=== PATIENT | male | born 1950 | race Caucasian/White ===

== ENCOUNTER 2016-09-01 20:53 | Inpatient (IN) | payer MEDICARE, OTHER ==
--- NOTE | ~2016-09-01 | CN ---
Consultation Report [address] [place]. [address] NAME: REA LIZARRAGA : 48 STATUS : ADM IN PAT#: [id number] AGE: 66 ADM/REG DATE : 09/02/16 MR#: [id number] REPORT SERV DATE: 09/03/16 DICTATED BY: THOMAS PATEL DATE: 09/02/16 REPORT STATUS : Draft TRANSCRIBED BY: MODL DATE: 09/02/16 CONSULTATION NOTE THIS IS A 66-YEAR-OLD WHITE MALE, WHO IS ADMITTED AFTER WAKING WITH PERIUMBILICAL ABDOMINAL PAIN. HE HAD BEEN HAVING SOME LOOSE STOOLS. ALSO DEVELOPED NAUSEA AND VOMITING. DURING THE DAY, HE HAD SYNCOPE X4. NO BLEEDING. NO FEVER. STOOL STUDIES HAD BEEN NEGATIVE SINCE ADMISSION. NO REFLUX. HISTORY OF ATRIAL FIBRILLATION, STATUS POST ABLATION, HE IS ON ELIQUIS; HE ALSO IS DIABETIC, ON METFORMIN; HISTORY OF HYPERTENSION. HE HAD KNEE SURGERY, ROTATOR CUFF SURGERY, UNDESCENDED TESTICLE SURGERY. PAST HISTORY OF COLON POLYPS, LAST EXAM ON 2010. DATE OF CONSULTATION: 09/02/2016 SOCIAL HISTORY: Negative for nicotine. Occasional ETOH. FAMILY HISTORY: Negative for colon cancer. CT scan revealed left-sided colitis. White count 15,000, hemoglobin of 15. Lipase normal at 97. PHYSICAL EXAMINATION: GENERAL: Well-developed, well-nourished, white male, alert x3. HEENT: Anicteric. CHEST: Clear. HEART: Regular rhythm. ABDOMEN: Soft, nontender, bowel sounds present. EXTREMITIES/NEUROLOGIC: Grossly intact. ASSESSMENT: 1. Abdominal pain, nausea, and diarrhea. CT with left-sided colitis. Stool studies negative. 2. Syncope. 3. Atrial fibrillation, status post ablation, on Eliquis. 4. Diabetes mellitus. 5. Hypertension. SUGGESTIONS: 1. Continue current therapy. 2. We will check mesenteric Doppler. If recurrent symptoms, may need gallbladder workup as well. We will also need colonoscopy, family requests as an outpatient. We will follow with you. Thank you very much for the consultation. Consultation Report [address] [place]. [address] NAME: REA LIZARRAGA : 49 STATUS : ADM IN PAT#: [id number] AGE: 66 ADM/REG DATE : 09/02/16 MR#: [id number] REPORT SERV DATE: 09/03/16 DICTATED BY: THOMAS PATEL DATE: 09/02/16 REPORT STATUS : Draft TRANSCRIBED BY: MODL DATE: 09/02/16 DC/LEONID Thomas Patel M.D. / [id number] CC: Morteza Ortega M.D.
--- NOTE | ~2016-09-01 | DS ---
Discharge Summary [facility] [address] [facility] [place]. [address] NAME: REA LIZARRAGA : 48 STATUS : DIS IN PAT#: [id number] AGE: 66 ADM/REG DATE : 09/02/16 MR#: [id number] REPORT SERV DATE: 09/04/16 DICTATED BY: DATE: REPORT STATUS : Draft TRANSCRIBED BY: MODL DATE: 09/03/16 ADMISSION DATE: 09/02/2016 DISCHARGE DATE: 09/03/2016 The patient was admitted to the [facility]. CONSULTANTS: Dr. Kenney. DISCHARGE DIAGNOSES: 1. Left-sided colitis - suspect ischemic. 2. Orthostatic hypotension - suspect volume depletion. 3. Acute kidney injury - suspect volume depletion, resolved at discharge. For close monitoring, on re-initiation of lisinopril and HCTZ. 4. Paroxysmal atrial fibrillation - on chronic Eliquis. 5. Mry-mnekbtr-bqalzalkg diabetes mellitus type 2. 6. Hypertension. 7. Hyperlipidemia. 8. Benign prostatic hypertrophy. 9. History of nephrolithiasis. 10.History of renal cysts. 11.History of liver cysts. 12.History of colon polyps. 13.Recent increase in belching. 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 IMAGING AND DIAGNOSTICS: 1. CT abdomen and pelvis without contrast, 09/01/2016, decompressed left side of the colon, limiting bowel wall assessment, although there is evidence of diffuse thickening of the distal descending and sigmoid colon with subtle infiltration of fat planes consistent with long segment colitis. One stable and one slowly enlarging cavernous hepatic hemangioma in the right lobe of the liver. Multiple simple cysts in both lobes of the liver. Multiple bilateral renal cysts. Small nonobstructing right intrarenal calculi with moderate large nonobstructing left intrarenal calculi in the lower pole. 2. PA, lateral chest x-ray 09/01/2016, lungs clear with normal heart size. 3. Mesenteric Doppler 09/03/2016 shows significant SMA stenosis, celiac and RAYMOND intact and normal. Multiple cysts in the liver. PERTINENT LABORATORIES: White blood cell count 15.6, hemoglobin 15.3, hematocrit 44.5, platelets 230. INR 1.3. Initial creatinine 2.1, peaked at 2.2, 1.4 at the time of discharge. Liver enzymes normal. Lipase negative. Troponin negative. TSH normal. Urinalysis, trace leukocyte esterase, nineteen red blood cells, three white blood cells. Stool for guaiac negative. C diff, PCR negative. BRIEF HISTORY: For full details, please see the previously dictated history of present illness by Dr. Jaime Soria M.D. This is a 66-year-old white male, who was woken up from sleep with epigastric abdominal pain, which seem to subside, so he went to work, but Discharge Summary [address] [address] NAME: REA LIZARRAGA : 48 STATUS : DIS IN PAT#: [id number] AGE: 66 ADM/REG DATE : 09/02/16 MR#: [id number] REPORT SERV DATE: 09/04/16 DICTATED BY: DATE: REPORT STATUS : Draft TRANSCRIBED BY: MODL DATE: 09/03/16 continued to experience some nonspecific abdominal soreness and poor p.o. intake. He had one episode of diarrhea, but no blood and no melena. He was experiencing subjective fevers, chills, nausea, dry heaves, but ultimately decided to present to the emergency department after having three syncopal episodes that day. He was admitted to the Hospitalist Service for further evaluation after CT revealed left-sided colitis. HOSPITAL COURSE: The patient was admitted to [address] [place] [address], placed on IV fluids, IV Levaquin, IV Flagyl. Stool studies were obtained and the patient was guaiac negative and C diff negative. The patient was seen by Gastroenterology with concern for possible ischemic colitis. Mesenteric ultrasound was obtained demonstrating a probable SMA stenosis, but normal celiac and RAYMOND flow. On further questioning, the patient denied any symptoms suggestive of ongoing intestinal angina, and thus will be seen by Vascular Surgery as an outpatient for further review. The patient was seen by Dr. Kenney here, with no emergent indication for EGD or colonoscopy, but will follow up with Dr. Kenney in the next two to three weeks to schedule these as an outpatient, when his Eliquis can be held and the procedure can be planned. The patient did have evidence of acute kidney injury as well as orthostasis at admission. His lisinopril and hydrochlorothiazide from home were held. His creatinine down trended from 2.2 to 1.4 with holding those medications and providing gentle IV fluids. His orthostatic hypotension resolved as well. He denies having any past issues with lisinopril or HCTZ, so these medications are re-started at discharge, but will need to be followed closely by his primary care provider, Dr. Ashok Resendez. He will need to follow up with repeat labs in one to two weeks to ensure that his creatinine remains stable. The patient was continued on other home medications for medical comorbidities as outlined above. By the time of discharge, he had greater than twenty four hours symptom-free, with resolution of abdominal pain, loose stools, chills, nausea, dry heaves. His oral intake was excellent and he had no recurrence of syncope or presyncope during the hospitalization. DISCHARGE DISPOSITION: The patient is discharged home in the care of his with no specific activity or dietary restrictions. He needs to follow up with [facility] for first available appointment regarding further evaluation for possible SMA stenosis. Also, needs to follow with Dr. Olman Kenney in two to three weeks for scheduling of an EGD and colonoscopy at a future point, and to follow up with Dr. Ashok Resendez in one to two weeks for blood pressure check, and repeat basic metabolic panel to ensure that his kidneys continued to tolerate lisinopril HCTZ. DISCHARGE MEDICATIONS: 1. Eliquis 5 mg p.o. twice a day. 2. Amiodarone 100 mg p.o. q.a.m. 3. Flomax 0.4 mg p.o. q.a.m. 4. Metformin 500 mg p.o. q.a.m. 5. Hydrochlorothiazide 25 mg p.o. q.a.m. 6. Accupril 40 mg p.o. q.a.m. 7. Cialis 5 mg p.o. q.a.m. Discharge Summary [place] [address] [place]. [address] NAME: REA LIZARRAGA : 48 STATUS : DIS IN PAT#: [id number] AGE: 66 ADM/REG DATE : 09/02/16 MR#: [id number] REPORT SERV DATE: 09/04/16 DICTATED BY: DATE: REPORT STATUS : Draft TRANSCRIBED BY: MODMadonna DATE: 09/03/16 8. Excedrin extra-strength one tablet p.o. daily as needed for migraines. 9. His antibiotics Levaquin and Flagyl were discontinued at discharge. 30 minutes was spent in completion of the discharge. AKS/MODL Jorden Bullock M.D. / [id number] CC: Morteza Ortega M.D. David Collins, M.D. Charles Scott Joels, M.D.
--- NOTE | ~2016-09-01 | HP ---
History And Physical [place] [address] [facility]. [address] NAME: REA LIZARRAGA : 49 STATUS : ADM IN [facility]#: [id number] AGE: 66 ADM/REG DATE : 09/02/16 MR#: [id number] REPORT SERV DATE: 09/02/16 DICTATED BY: PRETTY LAGUNAS DATE: 09/02/16 REPORT STATUS : Draft TRANSCRIBED BY: MODMadonna DATE: 09/02/16 DATE OF ADMISSION: 09/02/2016 CHIEF COMPLAINT: A 66-year-old male presenting with abdominal pain and syncope. HISTORY OF PRESENT ILLNESS: The patient's history was obtained through careful interview with the patient and , coupled with review of [facility] and [facility] medical records. The patient at 2:00 a.m. on Thursday morning, about 24 hours prior to this admission, awoke from his sleep with severe abdominal pain new onset and felt he could not breathe. From about 2:00 to 6:00 a.m. he struggled with abdominal pain, it was diffuse, sharp, pressure- like quality between 8, 9, and 10/10 severity. It seemed to subside. So, he went to some meeting that is related to his work as the [employer]. While working today he had soreness through his abdomen throughout the day and had no appetite, and so reports eating no food at all throughout the day. He has had some slight diarrhea, but there is no blood in it. No black discoloration. He has had subjective fevers and chills, nausea and dry heaves, but no actual vomiting. He then at work suddenly felt lightheaded and had two syncopal episodes 15 minutes apart, and he decided he want to go home and rest, but when he got home he had another syncopal episode and this prompted him to come to the hospital for further evaluation. No further shortness of breath. He claims his diabetes is under good control, but he does not check his blood sugars regularly. He has no change in urine habit. REVIEW OF SYSTEMS: Otherwise, a 14-point review of systems was obtained and was negative. PAST MEDICAL HISTORY: 1. Atrial fibrillation status post cardiac ablation under the care Dr. Costello, on chronic Eliquis. 2. Diabetes. 3. Elevated cholesterol. 4. Hypertension. 5. Benign prostatic hypertrophy. 6. Nephrolithiasis. 7. Possible polycystic kidney disease? 8. Large cavernous hemangiomas of the liver (two of them). 9. Colon polyps seen by Dr. Olman Kenney. PAST SURGICAL HISTORY: 1. Cardiac ablation x2, seen by Dr. Costello. 2. Left knee surgery x5. History And Physical [address] [place]. [address] NAME: REA LIZARRAGA : 48 STATUS : ADM IN [facility]#: [id number] AGE: 66 ADM/REG DATE : 09/02/16 MR#: [id number] REPORT SERV DATE: 09/02/16 DICTATED BY: PRETTY LAGUNAS DATE: 09/02/16 REPORT STATUS : Draft TRANSCRIBED BY: LEONID DATE: 09/02/16 3. Left orchiectomy for an undescended testicle at 16 years of age. 4. Blepharoplasty. ALLERGIES: NO KNOWN DRUG ALLERGIES. SOCIAL HISTORY: Quit smoking more than 30 years ago. Drinks occasional alcohol. He is . Lives in [place], [place]. Has one daughter. 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. FAMILY HISTORY: Father with atrial fibrillation and many members of his father side of the family has had atrial fibrillation. CURRENT MEDICATIONS: 1. Amiodarone 100 mg p.o. daily. 2. Eliquis 5 mg p.o. b.i.d. 3. Excedrin extra-strength. 4. Hydrochlorothiazide 25 mg daily. 5. Metformin 500 mg daily. 6. Quinapril 40 mg daily. 7. Cialis 5 mg p.o. daily. 8. Flomax 0.4 mg p.o. daily. PHYSICAL EXAMINATION: VITAL SIGNS: Temperature 98.4, pulse 70, blood pressure 125/63, respiratory rate 16, and O2 saturation 98% on room air. GENERAL: A pleasant, cooperative male. No evidence of acute distress. HEENT: Pupils equal, round, and reactive to light. No conjunctival pallor. No scleral icterus. Nares are patent. Oropharynx is clear of obstruction. Dry mucous membranes. NECK: Trachea midline. No thyromegaly. LYMPH: No cervical lymphadenopathy. No supraclavicular lymphadenopathy. RESPIRATORY: Clear to auscultation at bases. No wheezes, rales, or rhonchi. Normal respiratory effort. CARDIOVASCULAR: Regular rate and rhythm. No murmurs, rubs, or gallops. No extremity edema is appreciated. ABDOMEN: Diffuse tenderness. Nonfocal, but there is no guarding, no rebound. It is not too severe on exam. Nondistended abdomen. No hepatosplenomegaly. DERMATOLOGICAL: Warm and dry extremities. No pallor. No cyanosis. PSYCHIATRIC: Normal affect. Good mood. Alert and oriented x3. LABORATORY DATA: White blood cell count 15.6, hemoglobin 15, hematocrit 44, and platelets 230. Sodium 141, potassium 4.2, chloride 106, bicarb 26, BUN 27, creatinine 2.13 from baseline creatinine of 1.2, and glucose 152. Lipase 97. Troponin negative. History And Physical [address] [address] NAME: REA LIZARRAGA : 48 STATUS : ADM IN [facility]#: [id number] AGE: 66 ADM/REG DATE : 09/02/16 MR#: [id number] REPORT SERV DATE: 09/02/16 DICTATED BY: PRETTY LAGUNAS DATE: 09/02/16 REPORT STATUS : Draft TRANSCRIBED BY: LEONID DATE: 09/02/16 STUDIES: 1. Chest x-ray by my own evaluation shows no acute cardiopulmonary process. 2. EKG by my own evaluation shows sinus rhythm, no major abnormalities. 3. CT scan of the abdomen shows changes consistent with acute colitis. ASSESSMENT AND PLAN: 1. Acute colitis. Place on IV fluids. Place on IV antibiotics including IV Levaquin and Flagyl. Check stool studies because of diarrhea, check Hemoccult of stools. Consult manifest clerk, Dr. Olman Kenney. 2. Acute kidney injury. Place on IV fluids. Hold hydrochlorothiazide. 3. Paroxysmal atrial fibrillation. Check telemetry. Continue Eliquis. 4. Diabetes. Check hemoglobin A1c. Place on sliding scale insulin. Seems to be well controlled. 5. Syncope. Place on IV fluids. Check orthostatics. KPL/MODL Pretty Lagunas M.D. / [id number] CC: Morteza Ortega M.D. David Collins, M.D. Gregory Keith Bruce, M.D.
[2016-09-01 18:41] LABS: BASOPHILS 0.1 %; BASOPHILS ABSOLUTE 0.01 10/3/uL (0.0-0.16); EOSINOPHILS 0 %; HEMATOCRIT 44.5 % (40.0-51.0); HEMOGLOBIN 15.3 g/dL (13.6-17.8); IMMATURE GRANULOCYTES 0.2 %; IMMATURE GRANULOCYTES ABSOLUTE 0.03 10/3/uL (0.0-0.11); LYMPHOCYTES 6.7 %; LYMPHOCYTES ABSOLUTE 1.04 10/3/uL (0.67-4.30); MEAN CORPUS HGB CONC 34.4 g/dL (32.0-36.0); MEAN CORPUSCULAR HEMOGLOB 29.5 pg (26.0-34.0); MEAN CORPUSCULAR VOLUME 85.9 fL (80-100); MEAN PLATELET VOLUME 11.2 fL (9.2-13.0); MONOCYTES 1.3 %; MONOCYTES ABSOLUTE 0.21 10/3/uL (0.21-1.20); NEUTROPHILS 91.7 %; NEUTROPHILS ABSOLUTE 14.31 10/3/uL (2.02-8.40); PLATELET COUNT 230 10/3/uL (150-400); RBC DISTRIBUTION WIDTH 14.7 % (12.0-16.0); RED CELL COUNT 5.18 10/6/uL (4.7-6.1)
[2016-09-01 18:42] LABS: MANUAL DIFF NO %; WHITE BLOOD CELLS 15.6 10/3/uL (4.5-10.5)
[2016-09-01 18:52] LABS: INTERNATIONAL NORMAL RATI 1.3 UNITS (-); PARTIAL THROMBO TIME 29.3 SEC (22.5-37.2); PROTIME (NOT ORD) 15.7 SEC (12.0-14.5)
[2016-09-01 19:00] LABS: CALCIUM, SERUM 9.3 MG/DL (8.5-10.4); CHEST PAIN PROFILE TAT 0 Hrs 24 Mins; CHLORIDE, SERUM 106 MMOL/L (96-112); CO2 (CARBON DIOXIDE) 26 MMOL/L (24-34); POTASSIUM, SERUM 4.2 MMOL/L (3.5-5.3); SODIUM, SERUM 141 MMOL/L (135-148); TROPONIN I 0.02 NG/ML (<0.05)
[2016-09-01 19:01] LABS: BUN (BLOOD UREA NITROGEN) 27 MG/DL (6-23); CREATININE 2.13 MG/DL (0.70-1.30); GFR AFRICAN AMERICAN 36 ML/MIN (>=60); GFR NON AFRICAN AMERICAN 31 ML/MIN (>=60); GLUCOSE, SERUM 153 MG/DL (60-99)
[2016-09-01 20:30] LABS: ALKALINE PHOSPHATASE 76 U/L (45-117); DIRECT BILIRUBIN 0.1 MG/DL (0.0-0.4); INDIRECT BILIRUBIN(NOT ORDER) 0.6 MG/DL (0.1-0.9); SGOT(AST) 16 U/L (5-40); SGPT(ALT) 27 U/L (5-65); TOTAL BILIRUBIN 0.7 MG/DL (0-1.2); TOTAL PROTEIN 7.2 G/DL (6.0-8.5)
[~2016-09-01 20:53] MED LIST: ACCU20 PO; ACCUPRIL40 MG PO; ASAB PO; CIALIS5 MG PO; ELIQUIS 5 MG TAB5 MG PO; EXCEDRIN EXTRA1 EACH PO; FLOMAX4 PO; GLUCPH PO; HCTZ25B PO; HYDROCHLOROT25 MG PO; JANTOVEN2 MG PO; JANTOVEN5 MG PO; LOVENOX; MULTIVIT/MIN PO; MULTIVITAMI1 PO; NAC 600 PO; NORV5 PO; PACERONE100 MG PO; PACERONE200 MG PO; PACERONE400 MG PO; TRICOR145 PO; ZOCOR40 PO
[2016-09-02 08:39] LABS: HEMATOCRIT 42.2 % (40.0-51.0); HEMOGLOBIN 14.3 g/dL (13.6-17.8); MEAN CORPUS HGB CONC 33.9 g/dL (32.0-36.0); MEAN CORPUSCULAR HEMOGLOB 29.8 pg (26.0-34.0); MEAN CORPUSCULAR VOLUME 87.9 fL (80-100); MEAN PLATELET VOLUME 11.3 fL (9.2-13.0); PLATELET COUNT 229 10/3/uL (150-400); RBC DISTRIBUTION WIDTH 14.9 % (12.0-16.0); WHITE BLOOD CELLS 9.8 10/3/uL (4.5-10.5)
[2016-09-02 08:41] LABS: MANUAL DIFF YES %
[2016-09-02 08:44] LABS: INTERNATIONAL NORMAL RATI 1.3 UNITS (-); PARTIAL THROMBO TIME 30.3 SEC (22.5-37.2); PROTIME (NOT ORD) 16.2 SEC (12.0-14.5)
[2016-09-02 09:08] LABS: A/G RATIO 1.2 (0.7-1.9); ALBUMIN 3.9 G/DL (3.5-5.0); ALKALINE PHOSPHATASE 68 U/L (45-117); CHLORIDE, SERUM 106 MMOL/L (96-112); CO2 (CARBON DIOXIDE) 27 MMOL/L (24-34); CREATININE 2.27 MG/DL (0.70-1.30); GFR AFRICAN AMERICAN 33 ML/MIN (>=60); GFR NON AFRICAN AMERICAN 29 ML/MIN (>=60); GLOBULIN 3.3 G/DL (2.5-4.1); POTASSIUM, SERUM 4.1 MMOL/L (3.5-5.3); SGOT(AST) 11 U/L (5-40); SGPT(ALT) 18 U/L (5-65); SODIUM, SERUM 142 MMOL/L (135-148); TOTAL BILIRUBIN 0.7 MG/DL (0-1.2); TOTAL PROTEIN 7.2 G/DL (6.0-8.5); ULTRASENSITIVE TSH 0.713 MCIU/ML (0.358-3.740)
[2016-09-02 09:10] LABS: BUN (BLOOD UREA NITROGEN) 33 MG/DL (6-23); GLUCOSE, SERUM 107 MG/DL (60-99)
[2016-09-02 09:44] LABS: BAND NEUTROPHILS 1 %; LYMPHOCYTES 8 %; LYMPHOCYTES ABSOLUTE (CALC) 0.78 10/3/uL (0.67-4.30); MONOCYTES 10 %; MONOCYTES ABSOLUTE (CALC) 0.98 10/3/uL (0.21-1.20); NEUTROPHILS ABSOLUTE (CALC) 8.04 10/3/uL (2.02-8.40); PLATELET ESTIMATE ADQ (ADEQUATE); RBC MORPHOLOGY NORM (NORMAL); SEGMENTED NEUTROPHIL (0) 81 %; TOTAL NUCLEATED CELLS 100
[2016-09-02 15:19] LABS: ASCORBIC ACID (UR NOT ORDER) NEG (NEG); BILIRUBIN, URINE NEGATIVE (NEG); KETONE, URINE NEGATIVE (NEG); LEUKOCYTE ESTERASE(NOT OR TRACE (NEG); WBC (NOT ORDERED) (RFLEX) 3 (0-5)
[2016-09-03 05:32] LABS: BASOPHILS 0.3 %; BASOPHILS ABSOLUTE 0.02 10/3/uL (0.0-0.16); EOSINOPHILS 0.9 %; EOSINOPHILS ABSOLUTE 0.06 10/3/uL (0.0-0.53); HEMOGLOBIN 12.7 g/dL (13.6-17.8); IMMATURE GRANULOCYTES 0.3 %; IMMATURE GRANULOCYTES ABSOLUTE 0.02 10/3/uL (0.0-0.11); LYMPHOCYTES 18.7 %; LYMPHOCYTES ABSOLUTE 1.28 10/3/uL (0.67-4.30); MEAN CORPUS HGB CONC 33.7 g/dL (32.0-36.0); MEAN CORPUSCULAR HEMOGLOB 29.7 pg (26.0-34.0); MEAN CORPUSCULAR VOLUME 88.1 fL (80-100); MEAN PLATELET VOLUME 11.2 fL (9.2-13.0); MONOCYTES 8.9 %; MONOCYTES ABSOLUTE 0.61 10/3/uL (0.21-1.20); NEUTROPHILS 70.9 %; NEUTROPHILS ABSOLUTE 4.85 10/3/uL (2.02-8.40); PLATELET COUNT 194 10/3/uL (150-400); RBC DISTRIBUTION WIDTH 14.7 % (12.0-16.0); RED CELL COUNT 4.28 10/6/uL (4.7-6.1); WHITE BLOOD CELLS 6.8 10/3/uL (4.5-10.5)
[2016-09-03 05:37] LABS: HEMATOCRIT 37.7 % (40.0-51.0); MANUAL DIFF NO %
[2016-09-03 05:42] LABS: BUN (BLOOD UREA NITROGEN) 30 MG/DL (6-23); CHLORIDE, SERUM 108 MMOL/L (96-112); CO2 (CARBON DIOXIDE) 25 MMOL/L (24-34); GFR AFRICAN AMERICAN 59 ML/MIN (>=60); GFR NON AFRICAN AMERICAN 51 ML/MIN (>=60); GLUCOSE, SERUM 95 MG/DL (60-99); POTASSIUM, SERUM 3.9 MMOL/L (3.5-5.3); SODIUM, SERUM 142 MMOL/L (135-148)
[2016-09-03 05:43] LABS: CREATININE 1.41 MG/DL (0.70-1.30)
[2016-11-18] MEDS ORDERED: GLUCPH PO (12:00)
== END 2016-09-03 16:43 | disposition home or self-care (01) | DRG 394 ==
LOC: ER 20:53 → 4SO 09-02 00:41
PROVIDERS: Emergency Medicine; Hospitalist
DX: K55.1 Chronic vascular disorders of intestine (principal); N17.9 Acute kidney failure, unspecified; I48.0 Paroxysmal atrial fibrillation; E11.9 Type 2 diabetes mellitus without complications; I10 Essential (primary) hypertension; E86.9 Volume depletion, unspecified; E78.5 Hyperlipidemia, unspecified; Z79.01 Long term (current) use of anticoagulants; N40.0 Benign prostatic hyperplasia without lower urinary tract symptoms; Z86.010 Personal history of colon polyps; Z87.891 Personal history of nicotine dependence; Z79.84 Long term (current) use of oral hypoglycemic drugs; I95.1 Orthostatic hypotension
CPT/HCPCS: 71020; 74176; 80048; 80053; 80076; 81001; 82272; 82962; 83690; 83735; 84443; 84484; 85025; 85610; 85730; 87045; 87046; 87046-59; 87328; 87329; 87493; 87493-59; 87899; 87899-59; 89055; 93005; 93975; 96374; 99285; A9270-GY; J1956; J2405

== ENCOUNTER 2016-11-24 10:39 | Inpatient (IN) | payer MEDICARE, OTHER ==
[2016-11-19 10:11] LABS: ASCORBIC ACID (UR NOT ORDER) NEG (NEG); BILIRUBIN, URINE NEGATIVE (NEG); KETONE, URINE NEGATIVE (NEG); LEUKOCYTE ESTERASE(NOT OR NEG (NEG); WBC (NOT ORDERED) (RFLEX) 11 (0-5)
[2016-11-19 11:24] LABS: HEMATOCRIT 40.6 % (40.0-51.0); HEMOGLOBIN 13.7 g/dL (13.6-17.8)
[2016-11-19 11:30] LABS: CALCIUM, SERUM 9.6 MG/DL (8.5-10.4); CHLORIDE, SERUM 102 MMOL/L (96-112); CREATININE 1.21 MG/DL (0.70-1.30); GFR AFRICAN AMERICAN 71 ML/MIN (>=60); GFR NON AFRICAN AMERICAN 62 ML/MIN (>=60); GLUCOSE, SERUM 85 MG/DL (60-99); POTASSIUM, SERUM 3.8 MMOL/L (3.5-5.3); SODIUM, SERUM 139 MMOL/L (135-148)
[2016-11-19 11:31] LABS: BUN (BLOOD UREA NITROGEN) 16 MG/DL (6-23); CO2 (CARBON DIOXIDE) 31 MMOL/L (24-34)
--- NOTE | ~2016-11-24 | OP ---
Record Of Operation [facility] [address] [place]. [address] NAME: REA LIZARRAGA : 48 STATUS : ADM IN PAT#: [id number] AGE: 66 ADM/REG DATE : 11/24/16 MR#: [id number] REPORT SERV DATE: 11/26/16 DICTATED BY: JAYJAY HASTINGS JR. DATE: 11/25/16 REPORT STATUS : Draft TRANSCRIBED BY: MODL DATE: 11/25/16 DATE OF PROCEDURE: 11/25/2016 SURGEON: Jayjay Hastings M.D. PREOPERATIVE DIAGNOSIS: Renal stone. POSTOP DIAGNOSIS: Renal stone. PROCEDURE PERFORMED: Percutaneous ultrasonic lithotripsy and percutaneous nephrostolithotripsy of a left renal stone and dilation of percutaneous nephrostomy tube tract. COMPLICATIONS: None. CONSULTATIONS: None. ANESTHESIA: General with an endotracheal tube. SPECIMENS: Renal stone fragments. DRAINS: 6 x 26 cm double-J stent, 18-Uzbek Terry catheter, and a 20-Uzbek Twenty-Nine Palms tip catheter as a percutaneous nephrostomy tube. ESTIMATED BLOOD LOSS: 5 mL. INDICATION: Mr. Lizarraga is a 66-year-old gentleman who has a history of left renal stone which is too large for either lithotripsy or endoscopic management of approximately 3-4 cm in size. He had a percutaneous access placed yesterday with a NU stent. He comes today for percutaneous nephrostolithotripsy. PROCEDURE IN DETAIL: After the patient was identified and proper informed consent was obtained, he was taken to the operating room. General anesthesia was performed without complication using an endotracheal tube. He was then prepped and draped in the normal sterile fashion in the prone position. I then placed a super-stiff guidewire down the NU stent guided by fluoroscopy and removed the NU stent. I then placed a double lumen catheter over the super-stiff guidewire, placing a second super-stiff guidewire down to the level of the bladder. I removed the double-lumen catheter along with the existing nephrostomy tube and placed a balloon dilator over one of the super-stiff guidewires into the area of the renal pelvis dilating the tract to 12 atmospheres of pressure. I placed the sheath over the balloon into the renal pelvis and deflated the balloon, I then placed the nephroscope down the sheath and identified the stone in the upper pole renal calyx. He also had several other small stones coalescing in the lower pole calyx at the entrance or location of the nephrostomy tube site. I removed those smaller stones in that lower pole calyx first using the percutaneous ultrasonic Lithotripter and then grasped the large stone in the upper pole and brought it down into the renal pelvis. I then fragmented that stone again using the Record Of Operation [place] [id number] [place]. [address] NAME: REA LIZARRAGA : 48 STATUS : ADM IN PAT#: [id number] AGE: 66 ADM/REG DATE : 11/24/16 MR#: [id number] REPORT SERV DATE: 11/26/16 DICTATED BY: JAYJAY HASTINGS JR. DATE: 11/25/16 REPORT STATUS : Draft TRANSCRIBED BY: LEONID DATE: 11/25/16 percutaneous ultrasonic Lithotripter and then inspected each of the calices for any residual stones. Once I was confident that all the stones had been removed as well as negative fluoroscopic image of the kidney, I then removed the nephroscope and placed a double-J stent without difficulties with a nice curl in both the bladder and the kidney. A 20-Uzbek Twenty-Nine Palms tip catheter was placed into the renal pelvis as a nephrostomy tube and a plug was placed in the nephrostomy tube. It was sutured in place with a 2-0 silk suture. The patient was then awakened in the operating room, transferred to the postanesthesia care unit in stable condition. We will plan removal of the nephrostomy tube tomorrow if he has no increased flank pain or drainage from the site. GATO/LEONID Jayjay Hastings Jr., M.D. / [id number] CC: Morteza Cheng Jr., M.D.
[2016-11-24 11:47] LABS: INTERNATIONAL NORMAL RATI 1.3 UNITS (-); PARTIAL THROMBO TIME 31.1 SEC (22.5-37.2); PROTIME (NOT ORD) 15.8 SEC (12.0-14.5)
[2016-11-25 05:32] LABS: BASOPHILS 0 %; EOSINOPHILS 0 %; HEMATOCRIT 41.6 % (40.0-51.0); HEMOGLOBIN 13.9 g/dL (13.6-17.8); IMMATURE GRANULOCYTES 0.2 %; IMMATURE GRANULOCYTES ABSOLUTE 0.02 10/3/uL (0.0-0.11); LYMPHOCYTES 5.1 %; LYMPHOCYTES ABSOLUTE 0.44 10/3/uL (0.67-4.30); MEAN CORPUS HGB CONC 33.4 g/dL (32.0-36.0); MEAN CORPUSCULAR HEMOGLOB 29.4 pg (26.0-34.0); MEAN CORPUSCULAR VOLUME 88.1 fL (80-100); MEAN PLATELET VOLUME 10.5 fL (9.2-13.0); MONOCYTES 3.1 %; MONOCYTES ABSOLUTE 0.27 10/3/uL (0.21-1.20); NEUTROPHILS 91.6 %; NEUTROPHILS ABSOLUTE 7.93 10/3/uL (2.02-8.40); PLATELET COUNT 220 10/3/uL (150-400); RBC DISTRIBUTION WIDTH 14.2 % (12.0-16.0); RED CELL COUNT 4.72 10/6/uL (4.7-6.1); WHITE BLOOD CELLS 8.7 10/3/uL (4.5-10.5)
[2016-11-25 05:33] LABS: MANUAL DIFF NO %
[2016-11-25 05:50] LABS: BUN (BLOOD UREA NITROGEN) 16 MG/DL (6-23); CALCIUM, SERUM 9.8 MG/DL (8.5-10.4); CHLORIDE, SERUM 100 MMOL/L (96-112); CREATININE 1.17 MG/DL (0.70-1.30); GFR AFRICAN AMERICAN 74 ML/MIN (>=60); GFR NON AFRICAN AMERICAN 64 ML/MIN (>=60); POTASSIUM, SERUM 4.3 MMOL/L (3.5-5.3); SODIUM, SERUM 136 MMOL/L (135-148)
[2016-11-25 05:51] LABS: CO2 (CARBON DIOXIDE) 26 MMOL/L (24-34); GLUCOSE, SERUM 162 MG/DL (60-99)
[2016-11-26 05:07] LABS: BASOPHILS 0 %; EOSINOPHILS 0 %; HEMATOCRIT 41.6 % (40.0-51.0); HEMOGLOBIN 13.7 g/dL (13.6-17.8); IMMATURE GRANULOCYTES 0.2 %; IMMATURE GRANULOCYTES ABSOLUTE 0.02 10/3/uL (0.0-0.11); LYMPHOCYTES 4.1 %; LYMPHOCYTES ABSOLUTE 0.48 10/3/uL (0.67-4.30); MEAN CORPUS HGB CONC 32.9 g/dL (32.0-36.0); MEAN CORPUSCULAR HEMOGLOB 29.3 pg (26.0-34.0); MEAN CORPUSCULAR VOLUME 89.1 fL (80-100); MEAN PLATELET VOLUME 10.6 fL (9.2-13.0); MONOCYTES 5.4 %; MONOCYTES ABSOLUTE 0.64 10/3/uL (0.21-1.20); NEUTROPHILS 90.3 %; NEUTROPHILS ABSOLUTE 10.69 10/3/uL (2.02-8.40); PLATELET COUNT 217 10/3/uL (150-400); RBC DISTRIBUTION WIDTH 14.7 % (12.0-16.0); RED CELL COUNT 4.67 10/6/uL (4.7-6.1); WHITE BLOOD CELLS 11.8 10/3/uL (4.5-10.5)
[2016-11-26 05:08] LABS: MANUAL DIFF NO %
[2016-11-26 05:22] LABS: BUN (BLOOD UREA NITROGEN) 17 MG/DL (6-23); CALCIUM, SERUM 9.3 MG/DL (8.5-10.4); CHLORIDE, SERUM 99 MMOL/L (96-112); CO2 (CARBON DIOXIDE) 27 MMOL/L (24-34); CREATININE 1.21 MG/DL (0.70-1.30); GFR AFRICAN AMERICAN 71 ML/MIN (>=60); GFR NON AFRICAN AMERICAN 62 ML/MIN (>=60); GLUCOSE, SERUM 132 MG/DL (60-99); POTASSIUM, SERUM 4.7 MMOL/L (3.5-5.3); SODIUM, SERUM 132 MMOL/L (135-148)
[2016-11-26] MEDS ORDERED: NORCO1 TA2 PO (10:16)
[2016-11-30 17:18] LABS: STONE COMPOSITION TWO DNR (())
== END 2016-11-26 13:36 | disposition home or self-care (01) | DRG 661 ==
LOC: IMGHOLD 10:39 → RADHOLD 10:45 → IMGHOLD 15:55 → SDC/OF 15:56 → 4SO 16:11
PROVIDERS: Allergy & Immunology; Urology
PROC: 0T143JD Bypass Left Kidney Pelvis to Cutaneous with Synthetic Substitute, Percutaneous Approach (ICD-10-PCS; 2016-11-24)
PROC: 0TF Urinary System, Fragmentation (ICD-10-PCS; principal; 2016-11-25 12:45)
DX: N20.0 Calculus of kidney (principal); I10 Essential (primary) hypertension; N40.0 Benign prostatic hyperplasia without lower urinary tract symptoms
CPT/HCPCS: 36415; 50432; 50695; 76000; 80048; 81001; 82365; 82962; 85014; 85018; 85025; 85610; 85730; 86850; 86900; 86901; 93005; A9270-GY; C1726; C1729; C1769; C2617; J0690; J1956; J2250; J2270; J2405; J2710; J3010; Q9967